=== PATIENT | male | born 1980 | race Caucasian/White ===

== ENCOUNTER 2017-04-26 23:00 | Inpatient (IN) | payer OTHER ==
[~2017-04-26 23:00] MED LIST: APIDRA SOL100 UNIT/1; APIDRA SOL100 UNIT/1 SQ; ASPIRIN325 MG PO; DEMEROL 2525 MG/1 ML IV; HYDROCODON-ACE1 EAC7 PO; LANTUS SOL100 UNIT/1 SQ; LEVAQUIN 5500 MG/100 IV; LEVOTHROID50 MCG PO; LIPITOR80 MG PO; LISINOPRIL10 MG PO; METOPROLOL TART50 MG PO; MUCOMYST PO; ONDANSETRON4 MG/2 M3 IV; PLAVIX75 MG PO; PROTONIX I40 MG/VIAL IV; SYNTHROID25 MCG PO; TYLENOL 8 HOUR650 MG PO
[2017-04-27] VITALS (13 sets, daily range): BP systolic 123–169; BP diastolic 71–94; BMI 33.0
[2017-04-27 00:20] LABS: BASOPHILS 0.3 % (0-2); EOSINOPHILS 1.6 % (0-7); HEMATOCRIT 45.4 % (42.0-54.0); HEMOGLOBIN 15.6 g/dL (13.5-17.5); IMMATURE GRANULOCYTES 0.3 % (0-5); LYMPHOCYTES 8.9 % (15-50); MCH 30.2 pg (26.0-34.0); MCHC 34.4 g/dL (31.0-37.0); MCV 87.8 fL (80.0-100.0); MONOCYTES 5.8 % (2-11); NEUTROPHILS 83.1 % (40-80); PLATELET COUNT 188 10x3/uL (130-400); RBC 5.17 10x6/uL (4.20-6.10); RDW 12.8 % (11.5-14.5); WBC 15.2 10x3/uL (4.8-10.8)
[2017-04-27 00:42] LABS: ALBUMIN 4.5 g/dL (3.4-5.0); ALKALINE PHOSPHATASE 99 U/L (46-116); ALT (SGPT) 42 U/L (10-68); BILIRUBIN - TOTAL 0.46 mg/dL (0.2-1.3); CALCIUM 8.7 mg/dL (8.5-10.1); CARBON DIOXIDE 24.4 mmol/L (21.0-32.0); CHLORIDE - SERUM 103 mmol/L (98-107); CREATININE - SERUM 2.6 mg/dL (0.6-1.3); MAGNESIUM - SERUM 2.3 mg/dL (1.8-2.4); PROTEIN - SERUM 8.3 g/dL (6.4-8.2); SODIUM 132 mmol/L (136-145); UREA NITROGEN 50 mg/dL (7-18); eGFR NON AFRICAN AMERICAN 30 mL/min (90-120)
[2017-04-27 00:46] LABS: CALC OSMOLALITY 280 mosm/kg (275-300); GLUCOSE 161 mg/dL (74-106)
[2017-04-27 00:47] LABS: POTASSIUM - SERUM 7.7 mmol/L (3.5-5.1)
[2017-04-27 01:15] LABS: CREATINE KINASE 184 UL (21-232)
[2017-04-27 01:35] LABS: UDS - AMPHET NEGATIVE QUAL (NEGATIVE); UDS - BARB NEGATIVE QUAL (NEGATIVE); UDS - BENZO NEGATIVE QUAL (NEGATIVE); UDS - COCAINE NEGATIVE QUAL (NEGATIVE); UDS - OPIATE NEGATIVE QUAL (NEGATIVE); UDS - PCP NEGATIVE QUAL (NEGATIVE); UDS - THC NEGATIVE QUAL (NEGATIVE)
[2017-04-27 01:36] LABS: CKMB 2.2 U/L (0.0-3.6)
[2017-04-27 01:42] LABS: APPEARANCE CLEAR (CLEAR); BILIRUBIN NEGATIVE (NEGATIVE); COLOR YELLOW (YELLOW); GLUCOSE NEGATIVE (NEGATIVE); KETONE NEGATIVE (NEGATIVE); NITRITE NEGATIVE (NEGATIVE); PROTEIN NEGATIVE (NEGATIVE); UROBILINOGEN NORMAL (NORMAL)
--- NOTE | 2017-04-27 02:38 | NUR ---
REC'D TO ROOM 2303 VIA W/C FROM ER. PT TRANSFERRED SELF. ICU MONITORS ESTAB. VSS. R FA PIV PATENT WITH NS BOLUS INFUSING. SEE ADMISSION ASSESSMENT AND HISTORY. ALARMS ON AND C/L IN REACH.
--- NOTE | 2017-04-27 02:45 | NUR ---
AT , UPDATE GIVEN AND QUESTIONS ANSWERED.
[2017-04-27] MEDS ORDERED: PRINIVIL20 MG PO (02:52)
[2017-04-27] MEDS ORDERED: NORVASC2.5 MG PO (02:54)
[2017-04-27] MEDS ORDERED: NOVOLOG100 U/M1 SC (02:56)
[2017-04-27 03:10] LABS: ANION GAP 13.7 mmol/L (8-16); CALCIUM 8.4 mg/dL (8.5-10.1); CARBON DIOXIDE 24.4 mmol/L (21.0-32.0); CREATININE - SERUM 2.5 mg/dL (0.6-1.3)
[2017-04-27 03:15] LABS: POTASSIUM - SERUM 5.1 mmol/L (3.5-5.1)
--- NOTE | 2017-04-27 04:39 | NUR ---
PT UP TO BSC - LARGE BM. JENIFFER-CARE PER PT. VOIDED 600ML CLEAR, YELLOW URINE.
--- NOTE | 2017-04-27 06:36 | NUR ---
DR MEJIA GIVEN UPDATE VIA T
--- NOTE | 2017-04-27 07:00 | NUR ---
REC'D REPORT AND RESUMED CARE, AAO, VSS, DENIES PAIN, ASSESSMENT COMPLETE PER FLOWSHEET, URINAL IN USE, CALL LIGHT AT BEDSIDE, NO NEEDS AT THIS TIME
--- NOTE | 2017-04-27 07:35 | NUR ---
DR. GOLD HERE FOR EVAL
--- NOTE | 2017-04-27 10:45 | NUR ---
DR. WONG HERE FOR EVAL
--- NOTE | 2017-04-27 11:00 | NUR ---
NO ACUTE CHANGE FROM PREVIOUS ASSESSMENT, RESTING WITH NO SIGNS OF DISTRESS, VSS
[2017-04-27 14:17] LABS: ANION GAP 13.1 mmol/L (8-16); CARBON DIOXIDE 23.6 mmol/L (21.0-32.0); CREATININE - SERUM 2.1 mg/dL (0.6-1.3); POTASSIUM - SERUM 5.7 mmol/L (3.5-5.1)
--- NOTE | 2017-04-27 15:00 | NUR ---
NO ACUTE CHANGE FROM PREVIOUS ASSESSMENT VSS, NO NEEDS AT THIS TIME, FAMILY AT BEDSIDE, STATUS UPDATED
--- NOTE | 2017-04-27 16:45 | NUR ---
DINNER TRAY TO BEDSIDE, INDEPENDENT WITH SET UP AND EATING
--- NOTE | 2017-04-27 18:00 | NUR ---
FAMILY AT BEDSIDE, AWAITNG TRANSFER OUT OF ICU, NO OHTER NEEDS AT THIS TIME
--- NOTE | 2017-04-27 18:35 | NUR ---
30G OF KAEXYOLATE GIVEN PER ORDER
--- NOTE | 2017-04-27 19:45 | NUR ---
RECEIVED CARE OF PT, ASSESSMENT PER FLOWSHEET. PT ALERT AND ORIENTED, VISITING WITH IN NO APPARENT DISTRESS, HR SB ON CM, BREATH SOUNDS CTA, DENIES ANY NEEDS AT THIS TIME, VSS, CALL LIGHT IN REACH.
--- NOTE | 2017-04-27 21:50 | NUR ---
PT AND FRIEND AT BEDSIDE, ALL DENY ANY NEEDS, WILL CONT TO MONITOR.
--- NOTE | 2017-04-27 23:50 | NUR ---
PT RESTING IN BED WITH EYES CLOSED, VSS, CONT POC.
[2017-04-28 03:00] VITALS: BP 112/63
--- NOTE | 2017-04-28 03:05 | NUR ---
PT RESTING IN BED WITH EYES CLOSED, BREATHING EVEN AND UNLABORED, VSS, CONT POC.
[2017-04-28 03:49] LABS: BASOPHILS 0.8 % (0-2); EOSINOPHILS 5.3 % (0-7); HEMATOCRIT 39.6 % (42.0-54.0); HEMOGLOBIN 13.6 g/dL (13.5-17.5); LYMPHOCYTES 26.8 % (15-50); MCH 30.4 pg (26.0-34.0); MCHC 34.3 g/dL (31.0-37.0); MCV 88.6 fL (80.0-100.0); MEAN PLATELET VOLUME 11.9 fL (7.4-10.4); MONOCYTES 12.9 % (2-11); NEUTROPHILS 54.2 % (40-80); RBC 4.47 10x6/uL (4.20-6.10); RDW 12.7 % (11.5-14.5)
[2017-04-28 03:56] LABS: PLATELET COUNT 144 10x3/uL (130-400); WBC 4.9 10x3/uL (4.8-10.8)
[2017-04-28 04:01] LABS: ANION GAP 10.6 mmol/L (8-16); CARBON DIOXIDE 25.1 mmol/L (21.0-32.0); CREATININE - SERUM 1.8 mg/dL (0.6-1.3)
[2017-04-28 04:02] LABS: POTASSIUM - SERUM 4.7 mmol/L (3.5-5.1)
--- NOTE | 2017-04-28 06:09 | NUR ---
NO VISITORS PRESENT AT THIS TIME, VSS, CONT POC.
[2017-04-28 07:00] VITALS: BP 131/79
--- NOTE | 2017-04-28 07:34 | NUR ---
UP IN BED AWAKE AT THIS TIME WATCHING TV. DENEIS ANY NEEDS. NO ACUTE DISTRESS NOTED. WILL CONTINUE PLAN OF CARE.
--- NOTE | 2017-04-28 09:34 | NUR ---
PT TO TRANSFER TO ROOM 2103. WILL CALL REPORT AND TRANSFER PT SHORTLY.
--- NOTE | 2017-04-28 09:38 | NUR ---
REPORT GIVEN TO CHANO FOR PT TO TRANSFER TO ROOM 2102. WILL TRANSFER PT SHORTLY.
--- NOTE | 2017-04-28 10:02 | NUR ---
TRANSFERRED AT THIS TIME TO ROOM 2103 WITH ALL PERSONAL ITEMS VIA WHEELCHAIR ACCOMPANIED BY HOSPITAL STAFF AND FAMILY. NO ACUTE DISTRESS NOTED. NO FURTHER ACTIONS.
--- NOTE | 2017-04-28 10:15 | NUR ---
PT RECIEVED TO ROOM FROM ICU. PT ABLE TO AMBULATE FROM WHEELCHAIR TO BED. ALERT AND ORIENTED X4. FAMILY AT BEDSIDE. RR EVEN AND UNLABORED, PT DENIES PAIN AND REQUESTED TO TAKE SHOWER. ASSISTED PT TO GET READY FOR SHOWER. WILL PLACE TELEMETRY ON PT WHEN SHOWER COMPLETE. WILL CTM.
[2017-04-28 10:35] VITALS: BP 144/75
[2017-04-28 12:00] VITALS: BP 129/69
[2017-04-28 16:00] VITALS: BP 139/70
--- NOTE | 2017-04-28 18:27 | NUR ---
PT RESTING QUIETLY, DENIES NEEDS AT THIS TIME. RR EVEN AND UNLABORED. WILL GIVE REPORT ON PT CONDTION FOR THE DAY.
--- NOTE | 2017-04-28 19:21 | NUR ---
PT IN BED WATCHING TELEVISION. DENIES NEEDS AT THIS TIME.
[2017-04-28 20:00] VITALS: BP 135/81
[2017-04-29] VITALS: BP 138/86
--- NOTE | 2017-04-29 00:01 | NUR ---
PT RESTING WITH EYES CLOSED. RESP EVEN AND REGULAR. SR UP X2, CALL LIGHT WITHIN REACH.
[2017-04-29 04:00] VITALS: BP 140/82
--- NOTE | 2017-04-29 04:27 | NUR ---
CHECKED PTS BLOOD GLUCOSE LEVEL IT WAS 35 GAVE PT TWO APPLE JUICES WITH 3 PACKETS OF SUGAR THREE PACKS OF TIANA CRACKERS AND 3 PACKAGES OF PEANUT BUTTER. WILL RECHECK LEVEL IN 1 HOUR.
--- NOTE | 2017-04-29 07:20 | NUR ---
REPORT RECIEVED. RR EVEN AND UNLABORED, PT ASLEEP. WILL CTM.
--- NOTE | 2017-04-29 07:20 | NUR ---
REPORT RECIEVED. PT DENIES NEEDS AT THIS TIME. RR EVEN AND UNLABORED. PT ON ROOM AIR, DENIES FEELING SOB. EXPLAINED TO PT TO CALL FOR ASSISTANCE WHEN SHE AMBULATES TO BATHROOM SO I CAN SEE IF SHE DE-SATS. CURRENTLY O2 SATURATION IS 92 ON ROOM AIR. WILL CTM.
[2017-04-29 07:56] LABS: BASOPHILS 0.3 % (0-2); EOSINOPHILS 1.1 % (0-7); HEMATOCRIT 41.4 % (42.0-54.0); HEMOGLOBIN 14.3 g/dL (13.5-17.5); IMMATURE GRANULOCYTES 0.2 % (0-5); LYMPHOCYTES 14.3 % (15-50); MCH 30.4 pg (26.0-34.0); MCHC 34.5 g/dL (31.0-37.0); MCV 87.9 fL (80.0-100.0); MEAN PLATELET VOLUME 11.7 fL (7.4-10.4); MONOCYTES 5.8 % (2-11); NEUTROPHILS 78.3 % (40-80); PLATELET COUNT 146 10x3/uL (130-400); RBC 4.71 10x6/uL (4.20-6.10); RDW 12.5 % (11.5-14.5)
[2017-04-29 07:58] LABS: WBC 6.2 10x3/uL (4.8-10.8)
[2017-04-29 08:00] VITALS: BP 122/62
[2017-04-29 08:15] LABS: ANION GAP 15.8 mmol/L (8-16); CALCIUM 8.8 mg/dL (8.5-10.1); CARBON DIOXIDE 21.3 mmol/L (21.0-32.0); CREATININE - SERUM 1.7 mg/dL (0.6-1.3); POTASSIUM - SERUM 5.1 mmol/L (3.5-5.1)
[2017-04-29] MEDS ORDERED: PRINIVIL20 MG PO (09:55)
--- NOTE | 2017-04-29 11:30 | NUR ---
PT DISCHARGED. D/C INSTRUCTIONS PROVIDED TO PT AND FAMILY. VERBALIZED UNDERSTANDING. TELE D/C AND RETUNRED TO SALES AND MANAGEMENT TRAINEE. IV REMOVED WITH CATHETER TIP INTACT. PT DENIES FURTHER NEEDS. WILL BE LEAVING THE FLOOR WITH , REQUESTED TO WALK DOWN. WILL BE GOING HOME IN PERSONAL VEHICLE.
[2017-05-01 05:08] LABS: BASOPHILS 0.5 % (0-2); EOSINOPHILS 4.4 % (0-7); HEMATOCRIT 33.8 % (42.0-54.0); IMMATURE GRANULOCYTES 0.2 % (0-5); LYMPHOCYTES 17.1 % (15-50); MCH 28.7 pg (26.0-34.0); MEAN PLATELET VOLUME 10.3 fL (7.4-10.4); MONOCYTES 9.6 % (2-11); NEUTROPHILS 68.2 % (40-80); RDW 14.5 % (11.5-14.5); WBC 6.7 10x3/uL (4.8-10.8)
[2017-05-01 05:19] LABS: HEMOGLOBIN 10.8 g/dL (13.5-17.5); MCV 89.9 fL (80.0-100.0); PLATELET COUNT 256 10x3/uL (130-400); RBC 3.76 10x6/uL (4.20-6.10)
[2017-05-01 05:32] LABS: CALCIUM 8.8 mg/dL (8.5-10.1); CHLORIDE - SERUM 107 mmol/L (98-107); SODIUM 142 mmol/L (136-145)
[2017-05-01 05:34] LABS: CALC OSMOLALITY 283 mosm/kg (275-300); CARBON DIOXIDE 29.1 mmol/L (21.0-32.0); CREATININE - SERUM 0.9 mg/dL (0.6-1.3); GLUCOSE 97 mg/dL (74-106); UREA NITROGEN 15 mg/dL (7-18); eGFR NON AFRICAN AMERICAN > 90 mL/min (90-120)
== END 2017-04-29 11:42 | disposition home or self-care (01) | DRG 683 ==
LOC: D.ER 23:00 → D.ICU 04-27 01:32 → D.M2 04-28 10:03
PROVIDERS: Emergency Medicine; Internal Medicine Nephrology; Nurse Practitioner Family; ADMIT Family Medicine
DX: N17.9 Acute kidney failure, unspecified (principal); E87.1 Hypo-osmolality and hyponatremia; I12.9 Hypertensive chronic kidney disease with stage 1 through stage 4 chronic kidney disease, or unspecified chronic kidney disease; E87.5 Hyperkalemia; E11.22 Type 2 diabetes mellitus with diabetic chronic kidney disease; N18.9 Chronic kidney disease, unspecified; Z79.4 Long term (current) use of insulin; I25.10 Atherosclerotic heart disease of native coronary artery without angina pectoris; Z95.5 Presence of coronary angioplasty implant and graft; E03.9 Hypothyroidism, unspecified; E78.5 Hyperlipidemia, unspecified

== ENCOUNTER 2017-11-16 12:42 | Emergency (ER) | payer OTHER ==
[2017-04-27 02:38] VITALS: BMI 33.0
[~2017-11-16 12:42] MED LIST changes: +NORVASC2.5 MG PO; +NOVOLOG100 U/M1 SC; +PRINIVIL20 MG PO
[2017-11-16 13:13] LABS: BASOPHILS 1.2 % (0-2); EOSINOPHILS 3.8 % (0-7); HEMOGLOBIN 16.5 g/dL (12-16); IMMATURE GRANULOCYTES 0.2 % (0-5); LYMPHOCYTES 24.3 % (15-50); MCH 30.1 pg (26.0-34.0); MCHC 35.9 g/dL (31.0-37.0); MCV 83.8 fL (80.0-100.0); MEAN PLATELET VOLUME 11.1 fL (7.4-10.4); MONOCYTES 7.5 % (2-11); PLATELET COUNT 207 10x3/uL (130-400); RBC 5.49 10x6/uL (4.00-5.40); RDW 12.5 % (11.5-14.5)
[2017-11-16 13:17] LABS: APPEARANCE CLEAR (CLEAR); BILIRUBIN NEGATIVE (NEGATIVE); COLOR STRAW (YELLOW); GLUCOSE NEGATIVE (NEGATIVE); KETONE NEGATIVE (NEGATIVE); NITRITE NEGATIVE (NEGATIVE); PROTEIN TRACE mg/dL (NEGATIVE); UROBILINOGEN NORMAL (NORMAL)
[2017-11-16 13:29] LABS: ALBUMIN 4.4 g/dL (3.4-5.0); ANION GAP 17.4 mmol/L (8-16); BILIRUBIN - TOTAL 0.75 mg/dL (0.2-1.3); CALCIUM 8.6 mg/dL (8.5-10.1); CARBON DIOXIDE 22.4 mmol/L (21.0-32.0); CREATININE - SERUM 2.2 mg/dL (0.6-1.3); POTASSIUM - SERUM 5.8 mmol/L (3.5-5.1); PROTEIN - SERUM 8.1 g/dL (6.4-8.2)
== END 2017-11-16 14:27 | disposition home or self-care (01) ==
LOC: D.ER 12:42 → EDSEX 12:42 → D.ER 14:27
PROVIDERS: Emergency Medicine
DX: R25.2 Cramp and spasm (principal); E87.6 Hypokalemia; I12.9 Hypertensive chronic kidney disease with stage 1 through stage 4 chronic kidney disease, or unspecified chronic kidney disease; N18.9 Chronic kidney disease, unspecified; E11.9 Type 2 diabetes mellitus without complications; Z79.4 Long term (current) use of insulin; M79.662 Pain in left lower leg; M79.661 Pain in right lower leg

== ENCOUNTER → 2017-12-31 10:02 | Outpatient (CLI) | payer OTHER ==
[2017-04-27 02:38] VITALS: BMI 33.0
== END | disposition home or self-care (01) ==
LOC: D.US 10:02
DX: E11.21 Type 2 diabetes mellitus with diabetic nephropathy (principal); E78.2 Mixed hyperlipidemia; I12.9 Hypertensive chronic kidney disease with stage 1 through stage 4 chronic kidney disease, or unspecified chronic kidney disease; N18.4 Chronic kidney disease, stage 4 (severe); E87.5 Hyperkalemia

== ENCOUNTER 2018-12-27 09:12 | Emergency (ER) | payer OTHER ==
[~2018-12-27] VITALS: Ht 165.1 cm; Wt 68.2 kg
[2018-12-27 09:16] VITALS: Ht 165.1 cm; Wt 68.2 kg
[2018-12-27] MEDS ORDERED: SYNTHROID100 MCG PO (09:21)
[2018-12-27 09:47] LABS: BASOPHILS 0.6 % (0-2); EOSINOPHILS 4.1 % (0-7); HEMATOCRIT 41.2 % (42.0-54.0); IMMATURE GRANULOCYTES 0.2 % (0-5); MCV 88.2 fL (80.0-100.0); MEAN PLATELET VOLUME 11.7 fL (7.4-10.4); MONOCYTES 8.4 % (2-11); NEUTROPHILS 68.7 % (40-80); PLATELET COUNT 171 10x3/uL (130-400); RBC 4.67 10x6/uL (4.20-6.10); RDW 12.9 % (11.5-14.5); WBC 6.5 10x3/uL (4.8-10.8)
[2018-12-27 09:58] LABS: APTT 32.7 SECONDS (22.8-39.4); INR 1.07 (0.85-1.17); PROTIME 13.4 SECONDS (11.6-15.0)
[2018-12-27 09:59] LABS: D-DIMER-QUANTITATIVE 0.51 ug/mLFEU (0.20-0.54)
[2018-12-27 10:02] LABS: ALBUMIN 4.3 g/dL (3.4-5.0); ALKALINE PHOSPHATASE 73 U/L (46-116); ALT (SGPT) 29 U/L (10-68); CALC OSMOLALITY 295 mosm/kg (275-300); CALCIUM 9.4 mg/dL (8.5-10.1); CARBON DIOXIDE 23.7 mmol/L (21.0-32.0); CHLORIDE - SERUM 106 mmol/L (98-107); POTASSIUM - SERUM 5.7 mmol/L (3.5-5.1); PROTEIN - SERUM 7.8 g/dL (6.4-8.2); SODIUM 137 mmol/L (136-145); UREA NITROGEN 65 mg/dL (7-18); eGFR NON AFRICAN AMERICAN 25 mL/min (90-120)
[2018-12-27 10:04] LABS: GLUCOSE 155 mg/dL (74-106)
[2018-12-27 10:14] LABS: CKMB 1.4 U/L (0.0-3.6); CREATINE KINASE 127 UL (21-232); PRO BNP 140 pg/mL (0-125); TROPONIN-I < 0.017 ng/mL (0.000-0.060)
[2018-12-27 12:11] VITALS: BP 118/70
== END 2018-12-27 12:10 | disposition home or self-care (01) ==
LOC: D.ER 09:12
PROVIDERS: Family Medicine
DX: R06.09 Other forms of dyspnea (principal); I12.9 Hypertensive chronic kidney disease with stage 1 through stage 4 chronic kidney disease, or unspecified chronic kidney disease; N18.9 Chronic kidney disease, unspecified; I25.10 Atherosclerotic heart disease of native coronary artery without angina pectoris; E86.0 Dehydration; E78.5 Hyperlipidemia, unspecified

== ENCOUNTER → 2019-05-12 08:04 | Outpatient (CLI) | payer BC ==
[2018-12-27 09:16] VITALS: BMI 25.0
[~2019-05-12 08:04] MED LIST changes: +SYNTHROID100 MCG PO
--- NOTE | 2019-05-14 15:08 | EC ---
PATIENT:ANDRIA SESAY DATE OF SERVICE: 05/12/19 SEX: M MEDICAL RECORD: [id number] DATE OF : 78 LOCATION:[facility], LOC[facility]IN [facility] AGE OF PATIENT: 38 ADMISSION DATE: 05/12/19 REFERRING PHYSICIAN: INTERPRETING PHYSICIAN: DAISY MUSTAFA MD ECHOCARDIOGRAM REPORT ECHO CHARGES 4 ECHO COMPLETE Date: 05/12/19 CLINICAL DIAGNOSIS: H/O CAD/HTN ECHOCARDIOGRAPHIC MEASUREMENTS (adult normal given) AC root (d.<3.7cm) 2.9 cm LV Septum d (<1.2 cm> 1.1 cm Valve Excursion 1.9 cm LV Septum (systole) 1.3 cm Left Atria (s.<4.0cm> 4.1 cm LVPW d(<1.2cm) 1.0 cm RV (d.<2.3cm) 2.6 cm LVPW (sytole) 1.5 cm LV diastole(<5.6CM) 5.5 cm MV E-F(>70mm/sec) cm LV systole 3.9 cm LVOT Diameter 2.0 cm MV exc.(>10mm) cm Est.ejection fraction (50-75%) % DOPPLER: LVIT cm/sec A 43.0 cm/sec E 80.0 cm/sec LA cm/sec RVSP 30.0 mmHg LVOT 102 cm/sec AOP1/2T m/s Asc. Ao 152 cm/sec RVOT 69.0 cm/sec RA cm/sec PA 115 cm/sec AV Gradient Peak 9.2 mmHg AV Mean 3.6 mmHg AV Area 2.4 cm MV Gradient Peak 4.0 mmHg MV Mean 1.4 mmHg MV Area cm COMMENTS: OP - HC Egg Caser: 1 MARIA C TOROOE Acid Tank Cleaner: 3 Dr. De La Rosa TAPE# PACS Pericardial Effusion N DATE OF SERVICE: Adequate 2D, color flow imaging, spectral Doppler, and M-Mode No LVH. LV internal dimension is normal. Wall motion is normal. EF is greater than or equal to 55%. Aortic valve is tricuspid. No evidence of stenosis by Doppler interrogation. Left atrium is minimally dilated at 4.1 cm. Mitral valve shows no prolapse. Trace MR. Right-sided chambers are grossly normal. Trace TR. ECHOCARDIOGRAM REPORT [id number] ANDRIA SESAY TRANSINT:[id number] Voice Confirmation ID: [id number] DOCUMENT ID: [id number] DAISY MUSTAFA MD at 1508 CC: [id number] DICTATION DATE: 05/13/19 1328 INSIDE SALES REPRESENTATIVE: 05/13/19 1346 DEP CLI 05/12/19 [place] [id number] [place] [id number]
== END | disposition home or self-care (01) ==
LOC: D.HCCECHO 08:04
PROVIDERS: ATTEND Internal Medicine Interventional Cardiology
DX: I25.10 Atherosclerotic heart disease of native coronary artery without angina pectoris (principal)